=== PATIENT | female | born 1995 | race Two or more races ===

== ENCOUNTER 2017-11-07 11:52 | Emergency (ER) | payer MEDICAID, OTHER ==
[~2017-11-07] VITALS: Ht 165.1 cm; Wt 59.0 kg
[2017-11-07 12:50] LABS: Urine Bacteria FEW /hpf (None Seen); Urine Blood Negative /uL (Negative); Urine Mucus FEW (None Seen); Urine Specific Gravity 1.027 (1.001-1.035); Urine WBC 4 /hpf (0 - 5)
[2017-11-07 12:53] LABS: Hematocrit 41.1 % (36.0-46.0); Hemoglobin 13.8 g/dL (12.2-16.2)
[2017-11-07 14:50] VITALS: BP 96/47
== END 2017-11-07 14:56 | disposition home or self-care (01) ==
LOC: ER 11:52
DX: O20.0 Threatened abortion (principal); Z3A.01 Less than 8 weeks gestation of pregnancy
CPT/HCPCS: 36415; 76801; 81001; 84702; 85014; 85018